=== PATIENT | female | born 1975 | race Caucasian/White ===

== ENCOUNTER 2022-11-18 08:54 | Outpatient (CLI) | payer MEDICAID, SELFPAY ==
--- NOTE | 2022-11-18 09:10 | W.ANESPROC ---
Lumbar Puncture Date Performed: 11/18/22 Procedure Time: 10:15 Requesting Provider: Anne-Marie Roberts Procedure Location: Day Surgery Unit Standard Monitors Applied: Blood Pressure and SpO2 Patient Position: Sitting Timeout Performed: Yes Sedation Given (Indicate Dose Given): MKO Melt PO (@ 1002) Dose:: 1 tab Patient Mental Status: Awake Sterility: Hand Hygiene, Surgical Cap, Surgical Mask, Sterile Gloves, Sterile Drape/Sheet, Sterile Gown and Chlorhexidine Placement Site: L3-L4 Interspace Spinal Needle Type: Other Needle Length: Other (3.5 22 ga pencil point and 5 in 225 ga pencil point. ) Lumbar Puncture Procedure: Site Prepped, Sterile Drape Placed, 1% Lidocaine to skin and subcutaneous tissue with 25G needle and Introducer Needle Used Ultrasound: Used to barb site Paresthesia: Right Paresthesia Duration: Transient Number of Previous Attempts by Other Providers: 0 Number of Attempts (See previous attempts in note section): 2 Procedure Tolerated: No Complications Procedure Outcome: Unsuccessful Procedure Comment:: Discussed risks, she has no identified contraindications to lumbar puncture. 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 She agrees to proceed in this manner. MKO was given, she was placed in the lateral position, back was marked with US. Very challenging anatomy by us and palpation (very loose skin combined with scar tissue over lower back from abdominoplasty). Two attempts with redirections at the two sites. Attempts tolerated marginally. occasional non-descript parasethesias. After the 2 good attempts, a break was taken after her stating that she was not sure she could continue. We had a long discussion about potentially performing the procedure sitting up, and she agreed to at least palpating and US her back while she was sitting. A call was placed to neuro to confirm that it would be ok to not perform opening pressures. discussed with her that she appears that should would be easier sitting up, the necessity of the procedure, and the ability to give a little additional sedation via an IV. She is still not sure she would like to proceed. She was given more time to think about the procedure and what she would like to do. On returning to her her decision she was dressed and departing. Performed By: Gustavo Best
[2022-11-18 09:18] VITALS: BP 133/81; PULSE 79; RESP 18; TEMP 36.4; O2SAT 99
[2022-11-18 10:25] VITALS: BP 134/90; PULSE 58; RESP 17; TEMP 36.4; O2SAT 99
[2022-11-18 11:00] VITALS: BP 127/94; PULSE 57; RESP 16; TEMP 36.3; O2SAT 96
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
== END 2022-11-18 12:03 ==
PROVIDERS: PCP Nurse Practitioner Family; Visit Provider Nurse Anesthetist, Certified Registered
DX: R51.9 Headache, unspecified (principal); R76.8 Other specified abnormal immunological findings in serum
CPT/HCPCS: 81025